=== PATIENT | male | born 1995 | race Hispanic/Latino ===

== ENCOUNTER 2017-07-11 01:00 | Emergency (ER) | payer MEDICAID ==
[2017-07-11 01:05] VITALS: BP 131/77; PULSE 103; RESP 17; TEMP 97.7; O2SAT 97
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
--- NOTE | 2017-07-11 07:21 | CT ---
PROCEDURE: CT HEAD WITHOUT CONTRAST. HISTORY: head injury COMPARISON: None available. TECHNIQUE: Axial computed tomography images were obtained through the head/brain without intravenous contrast. Radiation dose: Total exam DLP = 1194 mGy-cm. This CT exam was performed using one or more of the following dose reduction techniques: Automated exposure control, adjustment of the mA and/or kV according to patient size, and/or use of iterative reconstruction technique. FINDINGS: HEMORRHAGE: No intracranial hemorrhage. BRAIN: No mass effect or edema. No atrophy or chronic microvascular ischemic changes. VENTRICLES: Unremarkable. No hydrocephalus. CALVARIUM: Unremarkable. PARANASAL SINUSES: Unremarkable as visualized. No significant inflammatory changes. MASTOID AIR CELLS: Unremarkable as visualized. No inflammatory changes. OTHER FINDINGS: Motion artifact somewhat limits evaluation. IMPRESSION: No acute intracranial abnormality. If symptoms persists, consider further evaluation with MRI. These findings were preliminarily reported at 3:42 a.m. on 07/11/[address] Caesar Villagran from [facility].
== END 2017-07-11 03:55 | disposition home or self-care (01) ==
LOC: H.ER 01:00
DX: S09.90XA Unspecified injury of head, initial encounter (principal); J45.909 Unspecified asthma, uncomplicated; Y04.2XXA Assault by strike against or bumped into by another person, initial encounter

== ENCOUNTER 2017-12-17 16:08 | Emergency (ER) | payer MEDICAID ==
[2017-12-17 16:30] VITALS: TEMP 98.7
--- NOTE | 2017-12-17 16:42 | ED PDOC ---
HPI: Psych/Substance Abuse Time Seen by Provider: 12/17/17 16:23 Chief Complaint (Nursing): Psychiatric Evaluation Chief Complaint (Provider): SI History Per: Patient Additional Complaint(s): Pt is a 22 yo male, reports a PMH of asthma, Arrived by EMS for [id number] of suicidal ideations. patient's friend called PD because patient told him he wanted to hurt himself - as per friend, patient made a suicide attempt last Patient reports that he has been severely depressed after the of his grandfather in November. Last night he thought about suicide. pt reports initially walking by the water and thought about jumping, but could not due it. Pt then reports that later in the night he through about jumping infront of a train but never made it to the station. Pt admits he consulted with his friend who made him come tot he ER and he is very happy to see he has someone who cares about him. At this time Pt denies any SI or HI. Past Medical History Reviewed: Nursing Documentation, Vital Signs Vital Signs: Last Vital Signs Temp 98.7 F 12/17/17 16:26 Pulse 87 12/17/17 16:26 Resp 18 12/17/17 16:26 BP 139/80 12/17/17 16:26 Pulse Ox 100 12/17/17 16:26 - Medical History PMH: Asthma (STATES NO ATTTACK IN 5YRS) - Surgical History Surgical History: No Surg Hx - Family History Family History: States: Unknown Family Hx - Living Arrangements Living Arrangements: With Family - Social History Current smoker - smoking cessation education provided: Yes Alcohol: Social Drugs: Cannabis - Immunization History Hx Tetanus Toxoid Vaccination: Yes Hx Influenza Vaccination: No Hx Pneumococcal Vaccination: No - Home Medications Home Medications: Ambulatory Orders Medication Instructions Recorded Ibuprofen [Motrin Tab] 600 mg PO Q6 #20 tab 12/29/16 Acetaminophen [Tylenol 325mg tab] 650 mg PO Q6 #30 tab 04/26/17 Acetaminophen [Tylenol 325mg tab] 975 mg PO Q6 #30 tab 04/26/17 - Allergies Allergies/Adverse Reactions: Allergies Allergy/AdvReac Type Severity Reaction Status Date / Time No Known Allergies Allergy Verified 12/17/17 16:26 Review of Systems ROS Statement: Except As Marked, All Systems Reviewed And Found Negative Psych: Positive for: Depression Physical Exam - Reviewed Nursing Documentation Reviewed: Yes Vital Signs Reviewed: Yes - Physical Exam Appears: Positive for: Well, Non-toxic, No Acute Distress Head Exam: Positive for: ATRAUMATIC, NORMAL INSPECTION, NORMOCEPHALIC Skin: Positive for: Normal Color, Warm, DRY Eye Exam: Positive for: EOMI, Normal appearance, PERRL ENT: Positive for: Normal ENT Inspection Neck: Positive for: Normal, Painless ROM Cardiovascular/Chest: Positive for: Regular Rate, Rhythm Respiratory: Positive for: CNT, Normal Breath Sounds Gastrointestinal/Abdominal: Positive for: Normal Exam, Soft Back: Positive for: Normal Inspection Extremity: Positive for: Normal ROM Neurologic/Psych: Positive for: Alert, Oriented - Laboratory Results Result Diagrams: 12/17/17 17:02 12/17/17 17:02 - ECG O2 Sat by Pulse Oximetry: 100 Medical Decision Making Medical Decision Making: Pt reports feeling anxious about the ED and would like something to help him calm down. Pt placed on 1:1 and given 0.5 mg tab Xanax PO Labs resulted and reviewed, CBC resulted WBC 2.8 COMP with elevated LFTs, Pt admits to being a daily drinker. ETOH 173 UA WNL UDS (-) Crisis made aware of consult case endorsed to ANDER Acosta at 1999 pending crisis eval and disposition Disposition - Clinical Impression Clinical Impression: Depression - Patient ED Disposition Is Patient to be Admitted: Transfer of Care - Disposition Disposition: Transfer of Care Disposition Time: 19:29 Condition: STABLE Forms: [facility] (Kinyarwanda)
[2017-12-17 17:07] LABS: BASO % 1.3 % (0.0-2.0); EOS # 0.1 K/uL (0.0-0.7); HEMOGLOBIN 15.7 g/dL (12.0-18.0); LYMPH # 0.8 K/uL (1.0-4.3); LYMPH % 30.4 % (20.0-40.0); MEAN CELL VOLUME 97.5 fl (80.0-94.0); MEAN CORPUSCULAR HEMOGLOBIN 33.5 pg (27.0-31.0); MEAN CORPUSCULAR HGB CONC 34.4 g/dL (33.0-37.0); MEAN PLATELET VOLUME 7.5 fl (7.2-11.7); MONO # 0.3 K/uL (0.0-0.8); MONO % 11.6 % (0.0-10.0); NEUT # 1.5 K/uL (1.8-7.0); NEUT % 54.7 % (50.0-75.0); NRBC % 0.2 % (0.0-0.0); RBC 4.67 Mil/uL (4.40-5.90); RED CELL DISTRIBUTION WIDTH 13.6 % (11.5-14.5); WHITE BLOOD COUNT 2.8 K/uL (4.8-10.8)
[2017-12-17 17:15] LABS: ALB/GLOB RATIO 1.3 (1.0-2.1); ALBUMIN 4.9 g/dL (3.5-5.0); ALT/SGPT 162 U/L (21-72); AST/SGOT 197 U/L (17-59); BLOOD UREA NITROGEN 6 mg/dl (9-20); CALCIUM 9.5 mg/dL (8.4-10.2); GFR NON-AFRICAN AMERICAN > 60
[2017-12-17 17:31] LABS: URINE BILIRUBIN NEGATIVE (NEGATIVE); URINE BLOOD NEGATIVE (NEGATIVE); URINE CLARITY CLEAR (Clear); URINE COLOR COLORLESS (YELLOW); URINE GLUCOSE (UA) NEG (Normal); URINE LEUKOCYTE ESTERASE NEG Leu/uL (Negative); URINE PROTEIN NEGATIVE (NEGATIVE); URINE UROBILINOGEN 0.2-1.0 mg/dL (0.2-1.0)
[2017-12-17 17:56] LABS: BARBITURATES, UR NEGATIVE (NEGATIVE); BENZODIAZEPINES, UR NEGATIVE (NEGATIVE); OPIATES, UR NEGATIVE (NEGATIVE); PHENCYCLIDINE, UR NEGATIVE (NEGATIVE)
--- NOTE | 2017-12-17 20:36 | ED PDOC ---
- Laboratory Results Result Diagrams: 12/17/17 17:02 12/17/17 17:02 - ECG O2 Sat by Pulse Oximetry: 100 (RA) Pulse Ox Interpretation: Normal Medical Decision Making Medical Decision Making: Case endorsed to scientific writer, Karla WORTHINGTON, at 1999 due to shift change. Pertinent details reviewed. Patient pending [facility] [place] [place] screening and further disposition. Labs reviewed. Serum alcohol 173. CBC grossly unremarkable. CMP with slight elevation of LFTs. U/A and Utox unremarkable. 2130 Patient resting comfortably in no acute distress. Vitals stable. 0130 Per [facility] [place] [place] screening, patient to be discharged with the diagnosis of depression per Dr Goode. Patient provided with outpatient appointment at [facility] arranged by [facility]. On re-evaluation, patient reports improvement of symptoms. On exam, patient remains AAOx3, in no acute distress. Lungs clear to auscultation, cardiac RRR, repeat neuro exam shows no focal findings. VSS, stable for discharge. Lab/Diagnostic results d/w the patient in great detail. Diagnosis of depression d/w the patient. Based on history, exam and diagnostic results, plan will be for outpatient follow up as directed by [facility]. Patient instructed to follow-up with pmd / referral provided / the clinic in 1- 2 days without fail. Return to the emergency room at any time for any new or worsening symptoms. Patient states he fully agrees with and understands discharge instructions. States that he agrees with the plan and disposition. Verbalized and repeated discharge instructions and plan. I have given the patient opportunity to ask any additional questions. Disposition Counseled Patient/Family Regarding: Studies Performed, Diagnosis, Need For Followup - Clinical Impression Clinical Impression: Depression - POA Present On Arrival: None - Disposition Referrals: [facility] [Outside] Disposition: Routine/Home Disposition Time: 01:33 Condition: STABLE Additional Instructions: The emergency medical care you received today was directed towards the acute presenting symptoms. If you were prescribed any medication, please fill it and give as directed. It may take several days for your symptoms to resolve. Return to the Emergency Department at any time if symptoms worsen, do not improve, or if any other problems arise. Please contact your doctor in 2 days for re-evaluation and follow up / or call one of the physicians/clinics you have been referred to that are listed on the Patient Visit Information form that is included in your discharge packet. Bring any paperwork you were given at discharge with you along with any medications to your follow up visit. Our treatment cannot replace ongoing medical care by a primary care provider (PCP) outside of the emergency department. Instructions: Depression, Tips for How to Help Your Mood Forms: [facility] (Pakistani) Print Language: MAORI Results - Lab Results Lab Results: 12/17/17 12/17/17 12/17/17 17:20 17:20 17:02 WBC 2.8 L RBC 4.67 Hgb 15.7 Hct 45.5 MCV 97.5 H MCH 33.5 H MCHC 34.4 RDW 13.6 Plt Count 257 MPV 7.5 Neut % (Auto) 54.7 Lymph % (Auto) 30.4 [place] % (Auto) 11.6 H Eos % (Auto) 2.0 Baso % (Auto) 1.3 Neut # (Auto) 1.5 L Lymph # (Auto) 0.8 L [place] # (Auto) 0.3 Eos # (Auto) 0.1 Baso # (Auto) 0.0 Sodium Potassium Chloride Carbon Dioxide Anion Gap BUN Creatinine Est GFR ( Amer) Est GFR (Non-Af Amer) Random Glucose Calcium Total Bilirubin AST ALT Alkaline Phosphatase Total Protein Albumin Globulin Albumin/Globulin Ratio Urine Color Colorless Urine Clarity Clear Urine pH 7.0 Ur Specific Idamay < 1.005 Urine Protein Negative Urine Glucose (UA) Neg Urine Ketones Negative Urine Blood Negative Urine Nitrate Negative Urine Bilirubin Negative Urine Urobilinogen 0.2-1.0 Ur Leukocyte Esterase Neg Urine RBC (Auto) 2 Urine Microscopic WBC < 1 Urine Opiates Screen Negative Urine Methadone Screen Negative Ur Barbiturates Screen Negative Ur Phencyclidine Scrn Negative Ur Amphetamines Screen Negative U Benzodiazepines Scrn Negative U Oth Cocaine Metabols Negative U Cannabinoids Screen Negative Alcohol, Quantitative 12/17/17 17:02 WBC RBC Hgb Hct MCV MCH MCHC RDW Plt Count MPV Neut % (Auto) Lymph % (Auto) [place] % (Auto) Eos % (Auto) Baso % (Auto) Neut # (Auto) Lymph # (Auto) [place] # (Auto) Eos # (Auto) Baso # (Auto) Sodium 143 Potassium 4.4 Chloride 107 Carbon Dioxide 24 Anion Gap 16 BUN 6 L Creatinine 0.7 L Est GFR ( Amer) > 60 Est GFR (Non-Af Amer) > 60 Random Glucose 88 Calcium 9.5 Total Bilirubin 0.5 AST 197 H ALT 162 H Alkaline Phosphatase 136 H Total Protein 8.8 H Albumin 4.9 Globulin 3.9 Albumin/Globulin Ratio 1.3 Urine Color Urine Clarity Urine pH Ur Specific Idamay Urine Protein Urine Glucose (UA) Urine Ketones Urine Blood Urine Nitrate Urine Bilirubin Urine Urobilinogen Ur Leukocyte Esterase Urine RBC (Auto) Urine Microscopic WBC Urine Opiates Screen Urine Methadone Screen Ur Barbiturates Screen Ur Phencyclidine Scrn Ur Amphetamines Screen U Benzodiazepines Scrn U Oth Cocaine Metabols U Cannabinoids Screen Alcohol, Quantitative 173 H
[2017-12-18 02:36] VITALS: BP 135/76; PULSE 80; RESP 16; O2SAT 99
== END 2017-12-18 01:41 | disposition home or self-care (01) ==
LOC: H.ER 16:08
DX: F32.9 Major depressive disorder, single episode, unspecified (principal)

== ENCOUNTER 2018-04-16 02:51 | Emergency (ER) | payer OTHER, MEDICAID ==
[2018-04-16 03:14] VITALS: BP 130/86; PULSE 83; RESP 18; TEMP 97.7; O2SAT 97
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
== END 2018-04-16 05:06 | disposition home or self-care (01) ==
LOC: H.ER 02:51
DX: S09.90XA Unspecified injury of head, initial encounter (principal); S02.2XXA Fracture of nasal bones, initial encounter for closed fracture; J45.909 Unspecified asthma, uncomplicated; Y04.2XXA Assault by strike against or bumped into by another person, initial encounter